=== PATIENT | male | born 1985 | race Caucasian/White ===

== ENCOUNTER 2017-02-12 07:56 | Emergency (ER) | payer SELFPAY ==
[~2017-02-12] VITALS: Ht 190.5 cm; Wt 102.0 kg
[2017-02-12 07:58] VITALS: BP 162/105; PULSE 89; RESP 14; TEMP 98.1; O2SAT 100
--- NOTE | 2017-02-12 08:24 | PD ---
HPI Chief Complaint: Complaint Time Seen by Provider: 08:01 Travel History International Travel<30 days: No Contact w/Intl Traveler<30days: No Traveled to known affect area: No History of Present Illness HPI 31-year-old male patient presents emergency department for evaluation of dysuria. Patient first had dysuria when he woke up in the middle the night to urinate. He describes the pain as sharp and stabbing in nature. Rates it a 4 out of 10. He says his only reported 4 times since the pain started. Patient also has a red scaly dry rash to his right side of his groin. denies any hematuria or penile discharge. Patient denies any testicular pain. Patient denies any new sexual partners for the last 2 weeks. Patient denies any major medical history does not take any daily medication. PFSH Past Medical History Asthma: No Blood Disorders: No Anxiety: No Depression: No Cancer: No Cardiovascular Problems: No High Cholesterol: No Chemotherapy: No Chest Pain: No Congestive Heart Failure: No COPD: No Cerebrovascular Accident: No Diabetes: No Diminished Hearing: No Endocrine: No Gastrointestinal Disorders: No GERD: No Genitourinary: Yes Headaches: No Hiatal Hernia: No Heparin Induced Thrombocytopen: No Hypertension: No Immune Disorder: No Implanted Vascular Access Dvce: No Kidney Stones: No Musculoskeletal: Yes (SCIATICA) Neurologic: No Psychiatric: No Reproductive: Yes (H/O ORCHITIS) Respiratory: No Migraines: No Radiation Therapy: No Renal Failure: No Sickle Cell Disease: No Sleep Apnea: No Thyroid Disease: No Ulcer: No Past Surgical History Abdominal Surgery: No Arteriovenous Shunt: No Cardiac Surgery: No Ear Surgery: No Endocrine Surgery: No Eye Surgery: No Genitourinary Surgery: No Gynecologic Surgery: No Joint Replacement: No Neurologic Surgery: No Oral Surgery: No Pacemaker: No Thoracic Surgery: No Other Surgery: No (TOOTH EXTRACTIONS) Social History Alcohol Use: Yes (6 BEERS X3 WEEKLY) Tobacco Use: Yes (1PPD) Substance Use: Yes (marijuana) Allergies-Medications (Allergen,Severity, Reaction): Coded Allergies: No Known Allergies (Unverified Adverse Reaction, Unknown, 02/12/17) Reported Meds & Prescriptions Reported Meds & Active Scripts Active Nystatin-Triamcinolone 100,000-0.1 Unit/Gm Cream 1 Applic TOPICAL BID Tramadol (Tramadol HCl) 50 Mg Tab 50 Mg PO Q6H PRN Valacyclovir (Valacyclovir HCl) 1,000 Mg Tab 1,000 Mg PO BID 10 Days Review of Systems Except as stated in HPI: all other systems reviewed are Neg Physical Exam Narrative GENERAL: Well-nourished, well-developed 31-year-old male patient in no acute distress. Nontoxic appearing.. SKIN: Dry, red, scaly rash noted to the right groin. HEAD: Normocephalic. Atraumatic. NECK: Supple, trachea midline. No JVD or lymphadenopathy. CARDIOVASCULAR: Regular rate and rhythm without murmurs, gallops, or rubs. RESPIRATORY: Breath sounds equal bilaterally. No accessory muscle use. GENITOURINARY: Circumcised. Testes descended bilaterally without evidence of rotation. Ulcerative and vesicular lesions noted to the dorsal aspect of the penile shaft. No urethral discharge. GASTROINTESTINAL: Abdomen soft, non-tender, nondistended. MUSCULOSKELETAL: No cyanosis, or edema. BACK: Nontender without obvious deformity. No CVA tenderness. Data Data Last Documented VS Vital Signs Date Time Temp Pulse Resp B/P (MAP) Pulse Ox O2 Delivery O2 Flow Rate FiO2 02/12/17 09:21 02/12/17 07:58 98.1 89 14 100 Orders Orders Urinalysis - C+S If Indicated (02/12/17 08:14) Herpes Simplex Virus Culture (02/12/17 08:50) Ed Discharge Order (02/12/17 09:14) Labs Laboratory Tests Test 02/12/17 08:05 Urine Color YELLOW Urine Turbidity CLEAR Urine pH 6.5 Urine Specific [place] 1.021 Urine Protein 30 mg/dL Urine Glucose (UA) NEG mg/dL Urine Ketones NEG mg/dL Urine Occult Blood NEG Urine Nitrite NEG Urine Bilirubin NEG Urine Urobilinogen LESS THAN 2.0 MG/DL Urine Leukocyte Esterase NEG Urine RBC LESS THAN 1 /hpf Urine WBC 3 /hpf Urine Mucus FEW /lpf Microscopic Urinalysis Comment CULT NOT INDICATED MDM Medical Decision Making Medical Screen Exam Complete: Yes Emergency Medical Condition: Yes Differential Diagnosis Differential diagnoses include but not limited to UTI, pyelonephritis, cystitis , STI, herpes, syphilis, tinea cruis, contact dermatitis, atopic dermatitis Narrative Course Urinalysis was unremarkable. Upon physical exam it was noted that there are ulcerative and vesicular lesions on the dorsal aspect of the penis. Patient states he had sex approximately 2 weeks ago and denies protection. Physical exam is consistent with HSV. Cultures were obtained. Patient expressed pain at the lesion site when cultures were obtained. Patient will be given a prescription for valacyclovir and tramadol for the pain. The right groin rash is consistent with tinea cruis or contact dermatitis. Patient will be him in a prescription for combination antifungal/steroid cream. Patient given instructions to follow-up for further testing and push [facility]. Patient will be given instructions to practice safe sex. Diagnosis Primary Impression: Herpes genitalia Qualified Codes: A60.01 - Herpesviral infection of penis Referrals: [facility] Dept. Patient Instructions: General Instructions, Genital Herpes Simplex (ED), Safe Sex (ED) Additional Instructions: Please return to emergency department if your symptoms return or worsen. Follow up with your primary care provider. Follow-up with urologist. Take medications as prescribed. Practice safe sex. Follow-up with the health department for further STI testing. Med/Other Pt SpecificInfo: Prescription(s) given Scripts Nystatin-Triamcinolone (Nystatin-Triamcinolone) 100,000-0.1 Unit/Gm Cream 1 APPLIC TOPICAL BID for Infection, #15 GM 0 Refills Prov: Brooke Ball 02/12/17 Tramadol (Tramadol) 50 Mg Tab 50 MG PO Q6H Y for PAIN, #12 TAB 0 Refills Prov: Suhail Vaughan MD 02/12/17 Valacyclovir (Valacyclovir) 1,000 Mg Tab 1000 MG PO BID for Mgmt Viral Infection for 10 Days, #2 TAB 0 Refills Prov: Brooke Ball 02/12/17 Disposition: 01 DISCHARGE HOME Condition: Stable Brooke Ball Feb 12, 2017 08:24
[2017-02-12 08:35] LABS: BILIRUBIN, URINE NEG (NEG); BLOOD, URINE NEG (NEG); GLUCOSE,URINE NEG (NEG); KETONE, URINE NEG (NEG); MUCUS URINE FEW /lpf (OCC); NITRITE,URINE NEG (NEG); PH, URINE 6.5 (5.0-8.5); URINE COLOR YELLOW (YELLW/STRAW); URINE LEUKOCYTE ESTERASE NEG (NEG)
[2017-02-12] MEDS ORDERED: VALA1TAB PO (08:58)
[2017-02-12] MEDS ORDERED: TRAM50TA PO (09:02)
[2017-02-12] MEDS ORDERED: NYSTCRE29 TOPICAL (09:09)
== END 2017-02-12 09:21 | disposition home or self-care (01) ==
LOC: NEPD 07:56
DX: A60.01 Herpesviral infection of penis (principal); F17.200 Nicotine dependence, unspecified, uncomplicated; Z79.899 Other long term (current) drug therapy
CPT/HCPCS: 81001; 87255; 99284

== ENCOUNTER 2017-03-05 14:16 | Emergency (ER) | payer SELFPAY ==
[~2017-03-05] VITALS: Ht 190.5 cm; Wt 100.0 kg
[~2017-03-05 14:16] MED LIST: NYSTCRE29 TOPICAL; TRAM50TA PO; VALA1TAB PO
[2017-03-05 14:19] VITALS: BP 162/107; PULSE 83; RESP 16; TEMP 99.7; O2SAT 99
--- NOTE | 2017-03-05 15:03 | PD ---
HPI Chief Complaint: Skin Problem Time Seen by Provider: 14:38 Travel History International Travel<30 days: No Contact w/Intl Traveler<30days: No Traveled to known affect area: No History of Present Illness HPI This is a 31-year-old male here with abscess to his left buttocks 3 days. He denies fever or chills. He reports pain at the site of the abscess. He attempted to squeeze the abscess earlier today. Symptom severity is moderate. Aggravated by palpation of the area. No alleviating factors. PFSH Past Medical History Asthma: No Blood Disorders: No Anxiety: No Depression: No Cancer: No Cardiovascular Problems: No High Cholesterol: No Chemotherapy: No Chest Pain: No Congestive Heart Failure: No COPD: No Cerebrovascular Accident: No Diabetes: No Diminished Hearing: No Endocrine: No Gastrointestinal Disorders: No GERD: No Genitourinary: Yes Headaches: No Hiatal Hernia: No Heparin Induced Thrombocytopen: No Hypertension: No Immune Disorder: No Implanted Vascular Access Dvce: No Kidney Stones: No Musculoskeletal: Yes (SCIATICA) Neurologic: No Psychiatric: No Reproductive: Yes (H/O ORCHITIS) Respiratory: No Migraines: No Radiation Therapy: No Renal Failure: No Sickle Cell Disease: No Sleep Apnea: No Thyroid Disease: No Ulcer: No Past Surgical History Abdominal Surgery: No Arteriovenous Shunt: No Cardiac Surgery: No Ear Surgery: No Endocrine Surgery: No Eye Surgery: No Genitourinary Surgery: No Gynecologic Surgery: No Joint Replacement: No Neurologic Surgery: No Oral Surgery: No Pacemaker: No Thoracic Surgery: No Other Surgery: No (TOOTH EXTRACTIONS) Social History Alcohol Use: Yes (6 BEERS X3 WEEKLY) Tobacco Use: Yes (1PPD) Substance Use: Yes (marijuana) Allergies-Medications (Allergen,Severity, Reaction): Coded Allergies: No Known Allergies (Unverified Adverse Reaction, Unknown, 02/12/17) Reported Meds & Prescriptions Reported Meds & Active Scripts Active Nystatin-Triamcinolone 100,000-0.1 Unit/Gm Cream 1 Applic TOPICAL BID Tramadol (Tramadol HCl) 50 Mg Tab 50 Mg PO Q6H PRN Valacyclovir (Valacyclovir HCl) 1,000 Mg Tab 1,000 Mg PO BID 10 Days Review of Systems Except as stated in HPI: all other systems reviewed are Neg General / Constitutional: No: Fever Physical Exam Narrative GENERAL: Alert and well-appearing 31-year-old male. No distress. SKIN: Warm and dry. 3 x 4 cm area of induration, erythema with central fluctuance. HEAD: Normocephalic. EYES: No injection or drainage. NECK: Supple, trachea midline. MUSCULOSKELETAL: No cyanosis, or edema. Data Data Last Documented VS Vital Signs Date Time Temp Pulse Resp B/P (MAP) Pulse Ox O2 Delivery O2 Flow Rate FiO2 03/05/17 14:19 99.7 83 16 162/107 (125) 99 Room Air Orders Orders Ketorolac Inj (Toradol Inj) (03/05/17 15:15) MDM Medical Decision Making Medical Screen Exam Complete: Yes Emergency Medical Condition: Yes Differential Diagnosis Abscess, cellulitis, folliculitis Narrative Course 31-year-old male here with abscess to the left buttocks 3 days. He is nontoxic appearing. The area was incised and drained. She'll be put on clindamycin and instructed to continue warm compresses. Anti-inflammatories for pain. Follow-up with his doctor in 2 days Procedures Procedure Narrative INCISION AND DRAINAGE OF ABSCESS: The area was prepped and was sterilely draped. A subcutaneous wheal of 1 % Xylocaine used to anesthetize the area properly. A number 11 scalpel was used to make a 0.5 -cm incision across the area of the abscess. The abscess was drained, complex loculations were broken down, and irrigated with normal saline. Sterile dressing applied. Diagnosis Primary Impression: Abscess Referrals: [facility] Patient Instructions: General Instructions Departure Forms: Work Release, Enter return to work date: Mar 07, 2017 Tests/Procedures Additional Instructions: Plan warm compresses to the area several times per day. Washing area with soap and water. Keep it covered with a clean dry dressing. Antibiotics as prescribed. Follow-up the primary doctor 2 days for recheck. Scripts Clindamycin (Clindamycin) 300 Mg Cap 300 MG PO Q6H for Infection for 10 Days, #40 CAP 0 Refills Prov: Jovita Vásquez 03/05/17 Jovita Vásquez Mar 05, 2017 15:02
[2017-03-05] MEDS ORDERED: CLIN300C5 PO (15:07)
[2017-03-05] MEDS ORDERED: KETOROLAC TROMETHAMINE 60 MG/2 ML (IM) VIAL IM ONE (15:15)
== END 2017-03-05 15:36 | disposition home or self-care (01) ==
LOC: NEPK 14:16
DX: L02.31 Cutaneous abscess of buttock (principal); F17.210 Nicotine dependence, cigarettes, uncomplicated
CPT/HCPCS: 10060; 96372; 99283; J1885